=== PATIENT | female | born 1965 | race Caucasian/White ===

== ENCOUNTER → 2018-12-25 | Outpatient (CLI) | payer OTHER ==
[~2018-12-25] MED LIST: IOHEXOL 300 MG/ML 75 ML VIAL. IV ONE
--- NOTE | 2018-12-26 08:05 | RAD ---
Examination: CT CHEST W/CONTRAST History: ABNORMAL WEIGHT LOSS, 42LBS IN 3 MONTHS, 75MLS OMNI 300 IV CONTRAST Comparison/Correlation: None Findings: Axial images of chest were obtained following IV contrast. Sagittal and coronal reformatted images were provided. Tracheobronchial tree is unremarkable. No infiltrate or pleural effusion. Calcified granuloma involves the posterior left lung base. No pneumothorax. No enlarged thoracic lymph nodes. No suspicious pulmonary nodule or mass. Postoperative cervical spine fusion is noted but this is only partially seen on the axial images provided. Significant disc space narrowing at C7-T1 noted. Mild atherosclerotic calcific involvement of the thoracic aorta noted. Debris noted to distend the stomach. Impression: No suspicious process. Unremarkable exam. PQRS Compliance Statement: One or more of the following individualized dose reduction techniques were utilized for this examination: 1. Automated exposure control 2. Adjustment of the mA and/or kV according to patient size 3. Use of iterative reconstruction technique Electronically signed by: Michael Huertas MD (12/26/2018 8:03 AM) [facility]
== END | disposition home or self-care (01) ==
LOC: CT 16:44
PROVIDERS: ATTEND Family Medicine
DX: R63.4 Abnormal weight loss (principal); I70.0 Atherosclerosis of aorta; M48.03 Spinal stenosis, cervicothoracic region; M43.22 Fusion of spine, cervical region; E03.9 Hypothyroidism, unspecified; E11.22 Type 2 diabetes mellitus with diabetic chronic kidney disease; N18.9 Chronic kidney disease, unspecified
CPT/HCPCS: 71260; Q9967